=== PATIENT | female | born 1975 | race Caucasian/White ===

== ENCOUNTER 2018-08-19 17:24 | Inpatient (IN) | payer BC ==
[~2018-08-19] VITALS: Ht 142.2 cm; Wt 50.8 kg
[~2018-08-19 17:24] MED LIST: CYCL-331 PO
[2018-08-19] MEDS ORDERED: FAMOTIDINE 20 MG/2 ML VIAL IVP ONE (18:45)
[2018-08-19] MEDS ORDERED: ASPIRIN 325 MG TABLET PO ONE (18:45)
[2018-08-19] MEDS ORDERED: LIDO:MAALOX 1:1 20 ML SINGLE DOSE. PO ONE (18:45)
[2018-08-19] MEDS ORDERED: FAMOTIDINE 20 MG/2 ML VIAL ONE (18:46)
[2018-08-19 19:41] LABS: BASO # 0.1 x10^3/uL (0.0-0.2); BASO % 1 % (0-3); EOS # 0.1 x10^3/uL (0.0-0.7); EOS % 1 % (0-3); HEMATOCRIT 43.5 % (36.0-47.0); HEMOGLOBIN 14.5 g/dL (12.0-15.5); LYMPH # 2.2 x10^3/uL (1.0-4.8); LYMPH % 27 % (24-48); MEAN CORPUSCULAR HEMOGLOBIN 27 pg (25-35); MEAN CORPUSCULAR HGB CONC 33 g/dL (31-37); MEAN CORPUSCULAR VOLUME 82 fL (79-100); MONO # 0.5 x10^3/uL (0.0-1.1); MONO % 6 % (0-9); NEUT # 5.3 x10^3uL (1.8-7.7); NEUT % 64 % (31-73); PLATELET COUNT 280 x10^3/uL (140-400); RED BLOOD COUNT 5.32 x10^6/uL (3.50-5.40); RED CELL DISTRIBUTION WIDTH 13.9 % (11.5-14.5); WHITE BLOOD COUNT 8.2 x10^3/uL (4.0-11.0)
[2018-08-19 19:56] LABS: ALBUMIN/GLOBULIN RATIO 1.3 (1.0-1.7); CALCIUM 9.2 mg/dL (8.5-10.1); CREATININE 0.7 mg/dL (0.6-1.0); GFR 91.3; TOTAL BILIRUBIN 0.3 mg/dL (0.2-1.0)
--- NOTE | 2018-08-19 20:57 | RAD ---
PA and lateral chest radiograph. History: Chest pain. History of pulmonic stenosis. Comparison: June 15, 2012. Findings: Cardiomediastinal silhouette is within normal limits for size. Bilateral lung damon appear clear without evidence of infiltrate, effusion, or pneumothorax. There are thought to be 13 right ribs and 12 left ribs. Impression: 1. No acute cardiopulmonary process. Electronically signed by: Scott Espinal MD (08/19/2018 8:53 PM) [facility]
--- NOTE | 2018-08-19 21:19 | PHYS DOC ---
Past History Past Medical History: No Pertinent History Past Surgical History: , Tubal ligation, Other Alcohol Use: None Drug Use: None Adult General Chief Complaint Chief Complaint: CHEST PAIN HPI HPI 43-year-old female presents with report of "band like"pressure/pain to upper abdomen which started this afternoon and has not improved. Patient denies known trauma. Denies fever/chills. Patient does report pain is worse with deep inspiration. Patient reports she did have similar experience one week ago which self resolved. Denies nausea or vomiting. Denies rash. Patient denies any cardiac risk factors. Denies leg swelling or calf tenderness. Denies family history of CAD or PE/DVT. 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 Review of Systems Review of Systems Constitutional: Denies fever or chills; reports generalized malaise Eyes: Denies change in visual acuity, redness, or eye pain [] HENT: Denies nasal congestion or sore throat [] Respiratory: Denies cough or shortness of breath [] Cardiovascular: Reports lower chest pain bilaterally, denies palpitations [] GI: Ports upper abdominal pain; denies nausea, vomiting, or diarrhea [] : Denies dysuria or hematuria [] Musculoskeletal: Denies back pain or joint pain [] Integument: Denies rash or skin lesions [] Neurologic: Denies headache, focal weakness or sensory changes [] Complete systems were reviewed and found to be within normal limits, except as documented in this note. Current Medications Current Medications Current Medications Medications (Trade) Dose Ordered Sig/Jeremy Start Time Stop Time Status Last Admin Dose Admin Aspirin (Librado Aspirin) 325 mg 1X ONCE 08/19/18 18:45 08/19/18 18:46 DC 08/19/18 18:55 325 MG Famotidine (Pepcid Vial) 20 mg STK-MED ONCE 08/19/18 18:46 08/19/18 18:47 DC Multi-Ingredient Mouthwash/Gargle (Gi Cocktail) 20 ml 1X ONCE 08/19/18 18:45 08/19/18 18:46 DC 08/19/18 18:52 20 ML Allergies Allergies Allergies Coded Allergies Type Severity Reaction Last Updated Verified No Known Drug Allergies 06/06/16 No Physical Exam Physical Exam Constitutional: Well developed, well nourished, no acute distress, non-toxic appearance, short stature HENT: Normocephalic, atraumatic Eyes: Conjunctiva normal, no discharge. [] Neck: Normal range of motion, no tenderness, supple, no stridor. [] Cardiovascular: Heart rate regular rhythm, no murmur [] Lungs & Thorax: Bilateral breath sounds clear to auscultation [] Abdomen: Soft, mild epigastric and LUQ tenderness. [] Skin: Warm, dry, no erythema, no rash. [] Back: No tenderness, no CVA tenderness. [] Extremities: No tenderness, ROM intact, no edema. [] Neurologic: Alert and oriented X 3, normal motor function, normal sensory function, no focal deficits noted. [] Psychologic: Affect normal, judgement normal, mood normal. [] Current Patient Data Vital Signs Vital Signs Date Time Temp Pulse Resp B/P (MAP) Pulse Ox O2 Delivery O2 Flow Rate FiO2 08/19/18 18:00 98.1 81 20 100 Room Air Lab Results Laboratory Tests Test 08/19/18 18:46 08/19/18 19:16 White Blood Count 8.2 x10^3/uL (4.0-11.0) Red Blood Count 5.32 x10^6/uL (3.50-5.40) Hemoglobin 14.5 g/dL (12.0-15.5) Hematocrit 43.5 % (36.0-47.0) Mean Corpuscular Volume 82 fL (79-100) Mean Corpuscular Hemoglobin 27 pg (25-35) Mean Corpuscular Hemoglobin Concent 33 g/dL (31-37) Red Cell Distribution Width 13.9 % (11.5-14.5) Platelet Count 280 x10^3/uL (140-400) Neutrophils (%) (Auto) 64 % (31-73) Lymphocytes (%) (Auto) 27 % (24-48) Monocytes (%) (Auto) 6 % (0-9) Eosinophils (%) (Auto) 1 % (0-3) Basophils (%) (Auto) 1 % (0-3) Neutrophils # (Auto) 5.3 x10^3uL (1.8-7.7) Lymphocytes # (Auto) 2.2 x10^3/uL (1.0-4.8) Monocytes # (Auto) 0.5 x10^3/uL (0.0-1.1) Eosinophils # (Auto) 0.1 x10^3/uL (0.0-0.7) Basophils # (Auto) 0.1 x10^3/uL (0.0-0.2) D-Dimer (Sherine) 0.56 mg/L (0.00-0.50) H Prothrombin Time 11.4 SEC (9.4-11.4) Prothrombin Time INR 1.2 (0.9-1.1) H Sodium Level 143 mmol/L (136-145) Potassium Level 4.0 mmol/L (3.5-5.1) Chloride Level 104 mmol/L (98-107) Carbon Dioxide Level 25 mmol/L (21-32) Anion Gap 14 (6-14) Blood Urea Nitrogen 16 mg/dL (7-20) Creatinine 0.7 mg/dL (0.6-1.0) Estimated GFR (Cockcroft-Gault) 91.3 BUN/Creatinine Ratio 23 (6-20) H Glucose Level 113 mg/dL (70-99) H Calcium Level 9.2 mg/dL (8.5-10.1) Magnesium Level 2.0 mg/dL (1.8-2.4) Total Bilirubin 0.3 mg/dL (0.2-1.0) Aspartate Amino Transferase (AST) 17 U/L (15-37) Alanine Aminotransferase (ALT) 24 U/L (14-59) Alkaline Phosphatase 90 U/L (46-116) Creatine Kinase 80 U/L (26-192) Creatine Kinase MB (Mass) 0.8 ng/mL (0.0-3.6) Creatine Kinase MB Relative Index 1.0 % (0-4) Troponin I Quantitative < 0.017 ng/mL (0-0.055) Total Protein 7.0 g/dL (6.4-8.2) Albumin 4.0 g/dL (3.4-5.0) Albumin/Globulin Ratio 1.3 (1.0-1.7) Lipase 875 U/L (73-393) H EKG EKG @1741 NSR at 81bpm, baseline artifact, NO ST elevation Radiology/Procedures Radiology/Procedures PROCEDURE: CHEST PA & LATERAL PA and lateral chest radiograph. History: Chest pain. History of pulmonic stenosis. Comparison: June 15, 2012. Findings: Cardiomediastinal silhouette is within normal limits for size. Bilateral lung damon appear clear without evidence of infiltrate, effusion, or pneumothorax. There are thought to be 13 right ribs and 12 left ribs. Impression: 1. No acute cardiopulmonary process. Electronically signed by: Scott Sims MD (08/19/2018 8:53 PM) [facility] PROCEDURE: LUNG VENT/PERFUSION SCAN(VQ) Nuclear medicine ventilation/perfusion scan. History: Shortness of air. Elevated d-dimer. Comparison: Chest radiograph August 19, 2018. Technique: Ventilation portion was performed after inhalation of 20 mCi Xenon-133. Perfusion portion was performed after intravenous administration of 6 mCi Tc 99m MAA. Findings: Ventilation study demonstrates a symmetric ventilation. There is evidence of air trapping, suggesting obstructive lung disease. There is also evidence of escape of the xenon, suggesting a leak of the tubing versus incomplete seal around the mouth. Perfusion study is normal. Impression: 1. Normal perfusion scan. Negative for pulmonary embolism. 2. Air-trapping, suggesting obstructive lung disease. Electronically signed by: Scott Sims MD (08/20/2018 12:00 AM) [facility] DICTATED AND SIGNED BY: SCOTT SIMS MD DATE: 08/19/18 2000 Course & Med Decision Making Course & Med Decision Making Pertinent Labs and Imaging studies reviewed. (See chart for details) Patient presents with report of bandlike pressure to upper abdominal quadrants. Denies fever or chills. Low cardiac risk factors. EKG without acute process. Initial troponin WNL. LFT within normal limits. Lipase with significant elevation. Symptomatic treatment provided with IV Pepcid and GI cocktail. D- dimer elevated. VQ scan ordered and low probability for acute PE. Patient requiring admission for further evaluation and treatment. Discussed with Dr. Jacob (PCP) who is in agreement with admission. Requests for routine CT abd /pelvis with PO contrast only to be ordered for AM. Discussed findings and plan with patient and family, who acknowledge understanding and agreement. Dragon Disclaimer Dragon Disclaimer This electronic medical record was generated, in whole or in part, using a voice recognition dictation system. Departure Departure: Impression: Primary Impression: Acute pancreatitis Additional Impression: Elevated d-dimer Disposition: ADMITTED INPATIENT Admitting Physician: Matt Jacob Condition: STABLE Referrals: MATT JACOB MD (PCP) Problem Qualifiers Primary Impression: Acute pancreatitis Pancreatitis type: unspecified pancreatitis type Acute pancreatitis complication: unspecified Qualified Codes: K85.90 - Acute pancreatitis without necrosis or infection, unspecified SCOTT DEL TORO DO Aug 19, 2018 21:19
[2018-08-19] MEDS ORDERED: ONDANSETRON PF 4 MG/2 ML VIAL. IV PRN (21:30)
[2018-08-19] MEDS: IV NORMAL SALINE 1,000ML 1,000 ML IV SCH ×2 (21:37→22:58)
[2018-08-19 23:17] VITALS: BP 131/84
--- NOTE | 2018-08-20 00:03 | RAD ---
Nuclear medicine ventilation/perfusion scan. History: Shortness of air. Elevated d-dimer. Comparison: Chest radiograph August 19, 2018. Technique: Ventilation portion was performed after inhalation of 20 mCi Xenon-133. Perfusion portion was performed after intravenous administration of 6 mCi Tc 99m MAA. Findings: Ventilation study demonstrates a symmetric ventilation. There is evidence of air trapping, suggesting obstructive lung disease. There is also evidence of escape of the xenon, suggesting a leak of the tubing versus incomplete seal around the mouth. Perfusion study is normal. Impression: 1. Normal perfusion scan. Negative for pulmonary embolism. 2. Air-trapping, suggesting obstructive lung disease. Electronically signed by: Scott Espinal MD (08/20/2018 12:00 AM) [facility]
[2018-08-20 05:50] VITALS: BP 123/83
--- NOTE | 2018-08-20 06:58 | EKG ---
[address] [address] Test Date: 2018-08-19 Test Time: 17:41:29 Pat Name: CHINTAN BELL Department: Room: 120 A Gender: F Nail Kegger: : 1975 Requested By: LJ SAUNDERS Order Number: [id number] Reading MD: Melvin Swift MD Measurements Intervals [place] Rate: 81 P: -24 AK: 124 QRS: 115 QRSD: 68 T: 82 QT: 330 QTc: 384 Interpretive Statements PROBABLE SINUS RHYTHM NON-SPECIFIC ST/T CHANGES Electronically Signed On 08-21-2018 9:54:58 CDT by Melvin Swift MD
--- NOTE | 2018-08-20 09:52 | RAD ---
Examination: CT of the abdomen pelvis with oral contrast HISTORY: History of pancreatitis COMPARISON: None available Technique: Axial CT images of the abdomen pelvis were performed with oral contrast. Coronal and sagittal deformities are performed Exposure: One or more of the following individualized dose reduction techniques were utilized for this examination: 1. Automated exposure control 2. Adjustment of the mA and/or kV according to patient size 3. Use of iterative reconstruction technique FINDINGS: The bibasilar lungs are clear. No evidence of free air identified in the abdomen. The evaluation of the solid organs is limited due to lack of IV contrast. The visualized noncontrasted liver, spleen, adrenals grossly appears unremarkable. The gallbladder is mildly distended. The stomach is mildly distended. The visualized pancreas grossly appears unremarkable however evaluation of the pancreas is limited due to lack of IV contrast. No evidence of focal fat stranding identified about the pancreas. The small bowel is nondilated. Feces and gas noted in the colon. Urinary bladder is mildly distended. A small soft tissue nubbin is identified probably congenitally small left kidney. There is mild fat stranding identified about the right kidney and about the proximal right ureter. No evidence of intrarenal collecting system calculi or hydronephrosis. Caliber of the aorta grossly appears unremarkable. Mild degenerative changes identified in the lumbar spine. IMPRESSION: 1. Faint fat stranding identified about the right kidney. Pyelonephritis is a possibility. Correlate with lab values. 2. No obvious fat stranding identified about the pancreas. However evaluation is limited without IV contrast. Electronically signed by: Ankur Barrow MD (08/20/2018 9:49 AM) [id number]
[2018-08-20] MEDS: IV NORMAL SALINE 1,000ML 1,000 ML IV SCH ×2 (10:16→21:30)
[2018-08-20 10:39] VITALS: BP 117/77
[2018-08-20] MEDS: APIXABAN 2.5 MG TABLET PO SCH ×2 (11:01→20:47)
[2018-08-20 11:02] LABS: BACTERIA,URINE FEW /HPF (0-FEW); BILIRUBIN,URINE NEG (NEG); CLARITY,URINE HAZY; COLOR,URINE STRAW; GLUCOSE,URINE NEG (NEG); NITRITE,URINE NEG (NEG); RBC,URINE 0 /HPF (0-2); SQUAMOUS EPITHELIAL CELL,UR OCC /LPF; UROBILINOGEN,URINE 0.2 mg/dL (0.2 mg/dL)
--- NOTE | 2018-08-20 12:20 | HP ---
ADMIT DATE: 08/19/2018 HISTORY OF PRESENT ILLNESS: This is a 43-year-old female who has been having problems with pain in her epigastric area radiating around to her back. This happened last week and then last night, it became increasingly worse. The patient otherwise had some mild nausea, but no fever or chills. She denies any other problems with cardiac risk factors. The patient was admitted initially for chest pain, although later her lipase came back markedly elevated over 800 and also later on CT scan showed the possibility of pyelonephritis, waiting on the urine on that. In any case, urine does show 11-20 white blood cells, so we may put her on some IV antibiotics there. 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 She has had C-sections x 2, nausea, heartburn, and facial reconstruction. She has been treated in the past for depression and anxiety. ALLERGIES: No known allergies. FAMILY HISTORY: Father with hypertension. MEDICATIONS: The patient's home med actually is just 1 and is not known at this time. SOCIAL HISTORY: The patient denies smoking, alcohol, or drug use. REVIEW OF SYSTEMS: The patient denies any recent weight loss, weight gain, change in bowel habits except for this band-like sensation around her waist area. The patient notes no problems with urination. She denies chest pain or shortness of breath. Denies any melena, hematochezia, or hematemesis. She is neurologically intact. PHYSICAL EXAMINATION: GENERAL: This is a pleasant 43-year-old female with no apparent distress at the present time. The patient is alert and oriented x 3. present in the room. VITAL SIGNS: Blood pressure 122/73, respiratory rate 20, pulse 90, afebrile. RESPIRATORY: The patient's lungs are clear to auscultation. CARDIOVASCULAR: Regular sinus rhythm, S1, S2, without murmur, rub, thrill, or extra heart sound. ABDOMEN: Soft and nontender. No rebound or guarding. Positive bowel sounds. No hepatosplenomegaly was noted. There is some tenderness, but very mild in the epigastric area. EXTREMITIES: No clubbing, cyanosis, or edema. NEUROLOGIC: The patient was alert and oriented x 3. As noted, lipase was 875. We will continue to monitor the patient and put her on some IV antibiotic therapy. She did have numerous white blood cells. Await for culture sensitivities on that. However, the patient should be continued to be monitored carefully and make further evaluation on her as indicated. MATT JACOB MD DR: HEATHER/lux JOB#: [id number] / [id number]
[2018-08-20 14:29] VITALS: BP 126/81
[2018-08-20] MEDS ORDERED: METO50TA6 PO (15:44)
[2018-08-20] MEDS ORDERED: NITR0.4T22 SL (15:44)
[2018-08-20] MEDS ORDERED: CALC-157 PO (15:44)
[2018-08-20] MEDS ORDERED: MOME13HF IH (15:44)
[2018-08-20] MEDS ORDERED: INSU100I13 SQ (15:44)
[2018-08-20] MEDS ORDERED: DOCU100C28 PO (15:44)
[2018-08-20] MEDS ORDERED: ASPI-630 PO (15:44)
[2018-08-20] MEDS ORDERED: LISI40TA PO (15:44)
[2018-08-20] MEDS ORDERED: CARB15DR58 OT (15:44)
[2018-08-20] MEDS ORDERED: ISOS30TA4 PO (15:44)
[2018-08-20] MEDS ORDERED: FURO40TA4 PO (15:44)
[2018-08-20] MEDS ORDERED: ACET325T9 PO (15:44)
[2018-08-20] MEDS ORDERED: NEOM10DR32 EACH EAR (15:44)
[2018-08-20] MEDS ORDERED: MECL25TA3 PO (15:44)
[2018-08-20] MEDS ORDERED: ATORVASTATIN CA80 MG PO (15:44)
[2018-08-20] MEDS ORDERED: FLUT9.9S NS (15:44)
[2018-08-20] MEDS ORDERED: RANI150C PO (15:44)
[2018-08-20] MEDS ORDERED: INSU100C4 SQ (15:44)
[2018-08-20] MEDS: ACETAMINOPHEN 325 MG TABLET PO PRN (17:44)
[2018-08-20 18:46] VITALS: BP 131/81
[2018-08-20] MEDS: LACTOBACILLUS RHAMNOSUS GG 1 CAPSULE. PO SCH (20:46)
[2018-08-20 22:47] VITALS: BP_SYST 120; BP_SYST 127; BP_DIAS 69; BP_DIAS 81
[2018-08-21 05:39] VITALS: BP 111/71
[2018-08-21] MEDS: ACETAMINOPHEN 325 MG TABLET PO PRN (06:02)
[2018-08-21] MEDS: IV NORMAL SALINE 1,000ML 1,000 ML IV SCH (07:10)
[2018-08-21] MEDS ORDERED: ONDANSETRON PF 4 MG/2 ML VIAL. IV PRN (07:15)
[2018-08-21 08:28] LABS: BASO % 0 % (0-3); EOS % 0 % (0-3); HEMATOCRIT 38.2 % (36.0-47.0); HEMOGLOBIN 12.6 g/dL (12.0-15.5); LYMPH % 13 % (24-48); MEAN CORPUSCULAR HEMOGLOBIN 27 pg (25-35); MEAN CORPUSCULAR HGB CONC 33 g/dL (31-37); MEAN CORPUSCULAR VOLUME 83 fL (79-100); MONO # 0.3 x10^3/uL (0.0-1.1); MONO % 4 % (0-9); NEUT # 6.7 x10^3uL (1.8-7.7); NEUT % 83 % (31-73); PLATELET COUNT 198 x10^3/uL (140-400); RED CELL DISTRIBUTION WIDTH 13.7 % (11.5-14.5); WHITE BLOOD COUNT 8.1 x10^3/uL (4.0-11.0)
[2018-08-21 08:42] LABS: CALCIUM 8.4 mg/dL (8.5-10.1); CREATININE 0.8 mg/dL (0.6-1.0); GFR 78.3
[2018-08-21] MEDS: APIXABAN 2.5 MG TABLET PO SCH (09:00)
[2018-08-21] MEDS ORDERED: LEVO500T59 PO (09:04)
[2018-08-21] MEDS: LACTOBACILLUS RHAMNOSUS GG 1 CAPSULE. PO SCH (09:41)
--- NOTE | 2018-08-23 01:21 | DS ---
DATE OF DISCHARGE: 08/21/2018 HOSPITAL COURSE: A 43-year-old female came in with severe abdominal pain. The patient's CT scan showed possible pyelonephritis. She was treated with IV antibiotic therapy. She made excellent progress during the rest of her hospitalization. She also had an elevated lipase of 875. The patient made good progress overall and was discharged home. IMPRESSION: Pyelonephritis, acute pancreatitis, Angel Luis Manuel syndrome, history of brain aneurysm, pulmonary stenosis, aortic reconstruction, cardiac catheterization, history of pancreatitis. PLAN: The patient; otherwise, will be continued to be monitored carefully as an outpatient, should be on a regular diet, decreased activity. Make further evaluation as an outpatient. She will be referred on to GI for further evaluation and treatment. MATT JACOB MD DR: HEATHER/lux JOB#: [id number] / [id number]
== END 2018-08-21 10:10 | disposition home or self-care (01) | DRG 689 ==
LOC: ER 18:30 → 1 SOUTH 21:25
PROVIDERS: ADMIT Family Medicine; ATTEND Family Medicine
DX: N12 Tubulo-interstitial nephritis, not specified as acute or chronic (principal); K85.90 Acute pancreatitis without necrosis or infection, unspecified; R79.1 Abnormal coagulation profile; Z98.891 History of uterine scar from previous surgery; Z82.49 Family history of ischemic heart disease and other diseases of the circulatory system; Z98.51 Tubal ligation status; Q87.0 Congenital malformation syndromes predominantly affecting facial appearance; Z79.899 Other long term (current) drug therapy
CPT/HCPCS: 36415; 71046; 74176; 78582; 80048; 80053; 80061; 81001; 82150; 82553; 83690; 83735; 84484; 85025; 85379; 85610; 87086; 93005; 96374; 96375; A9540; A9558; J1956; J2405; J3010; S0028; 99285-25; J7030

== ENCOUNTER 2019-04-20 08:21 | Emergency (ER) | payer BC ==
[~2019-04-20] VITALS: Ht 142.2 cm; Wt 49.0 kg
[~2019-04-20 08:21] MED LIST changes: +ACET325T9 PO; +ASPI-630 PO; +ATORVASTATIN CA80 MG PO; +CALC-157 PO; +CARB15DR58 OT; +DOCU100C28 PO; +FLUT9.9S NS; +FURO40TA4 PO; +INSU100C4 SQ; +INSU100I13 SQ; +ISOS30TA4 PO; +LEVO500T59 PO; +LISI40TA PO; +MECL25TA3 PO; +METO50TA6 PO; +MOME13HF IH; +NEOM10DR32 EACH EAR; +NITR0.4T22 SL; +RANI150C PO
--- NOTE | 2019-04-20 08:54 | PHYS DOC ---
Past History Past Medical History: Other Additional Past Medical Histor: Angel Luis Manuel syndrome Past Surgical History: , Tubal ligation, Other Smoking: Non-smoker Alcohol Use: None Drug Use: None Adult General Chief Complaint Chief Complaint: MECHANICAL FALL HPI HPI Patient is a 43-year-old female presents complaining of right ankle and low back pain. Patient was standing on and unstable support when it gave way causing her to fall injuring the ankle and low back. There was no loss of consciousness. No head injury. Increased pain with movement and walking. This happened at approximately 07:30 this morning. No numbness or tingling. No weakness, numbness, or tingling. No home medicines have been taken. Pain is moderate to severe in intensity.[] Review of Systems Review of Systems Constitutional: Denies fever or chills [] Eyes: Denies change in visual acuity, redness, or eye pain [] HENT: Denies nasal congestion or sore throat [] Respiratory: Denies cough or shortness of breath [] Cardiovascular: No chest pain or palpitations[] GI: Denies abdominal pain, nausea, vomiting, bloody stools or diarrhea [] : Denies dysuria or hematuria [] Musculoskeletal: See history of present illness[] Integument: Denies rash or skin lesions [] Neurologic: Denies headache, focal weakness or sensory changes [] Endocrine: Denies polyuria or polydipsia [] All other systems were reviewed and found to be within normal limits, except as documented in this note. Current Medications Current Medications Current Medications Medications (Trade) Dose Ordered Sig/Jeremy Start Time Stop Time Status Last Admin Dose Admin Ibuprofen (Motrin) 600 mg 1X ONCE 04/20/19 09:00 04/20/19 09:01 UNV Allergies Allergies Allergies Coded Allergies Type Severity Reaction Last Updated Verified No Known Drug Allergies 06/06/16 No Physical Exam Physical Exam Constitutional: Well developed, well nourished, mild to moderate discomfort, non-toxic appearance. [] HENT: Normocephalic, atraumatic, bilateral external ears normal, oropharynx moist, no oral exudates, nose normal. [] Eyes: PERRLA, EOMI, conjunctiva normal, no discharge. [] Neck: Normal range of motion, no tenderness, supple, no stridor. [] Cardiovascular:Heart rate regular rhythm, no murmur [] Lungs & Thorax: Bilateral breath sounds clear to auscultation, no crepitus, no flail segments, no tenderness to palpation [] Abdomen: Bowel sounds normal, soft, no tenderness, no masses, no pulsatile masses. [] Skin: Warm, dry, no erythema, no rash. [] Back: Tenderness to palpation to the right of midline in the lumbar paraspinal region. Decreased active range of motion secondary to pain. Spasm is present. No midline tenderness, step-off, or crepitus. Patient is distally neurovascularly intact., no CVA tenderness. [] Extremities: Right ankle has tenderness over the lateral malleolus and the anterior patellar fibular ligament, no significant base of the fifth metatarsal tenderness. There is no crepitus, decreased active range of motion secondary to pain. No laxity appreciated. She is distally neurovascularly intact. A joint above and a joined below were evaluated and were normal. The other 3 extremities show: No tenderness, no cyanosis, no clubbing, ROM inta ct, no edema. [] Neurologic: Alert and oriented X 3, normal motor function, normal sensory function, no focal deficits noted. [] Psychologic: Affect normal, judgement normal, mood normal. [] Current Patient Data Vital Signs Vital Signs Date Time Temp Pulse Resp B/P (MAP) Pulse Ox O2 Delivery O2 Flow Rate FiO2 04/20/19 08:38 98.2 81 20 100 Room Air EKG EKG [] Radiology/Procedures Radiology/Procedures Three-view right ankle study Clinical indications: Fall with right ankle pain. FINDINGS: No acute fracture or dislocation or lytic process is seen. The mortise ankle joint is intact. IMPRESSION: No acute fracture. LUMBAR SPINE 2-3V History: Fall, low back pain Comparison: None. Findings: 3 views of the lumbar spine are submitted. Lumbar vertebral body stature and AP alignment overall maintained. There is facet degenerative change of the inferior lumbar spine. No acute osseous abnormality is identified by radiographs. Small calcifications in the pelvis bilaterally are more likely due to phleboliths. Impression: 1. No acute osseous abnormality is identified by radiographs. [] Course & Med Decision Making Course & Med Decision Making Pertinent Labs and Imaging studies reviewed. (See chart for details) ED course: Patient arrived, was placed in bed, and tolerated exam well. She was transported to and from radiology with any complications. After the return of lab and imaging findings, these were discussed with the patient and family who voiced understanding. Patient was put in a ankle splint. She was distally neurovascularly intact after splint application. She was discharged in improved condition with all questions answered. Medical decision making: There is no evidence of a fracture, dislocation or subluxation. No evidence of neurologic or vascular compromise. No evidence of acute kidney injury. No evidence of acute intra-abdominal traumatic pathology.[] Dragon Disclaimer Dragon Disclaimer This electronic medical record was generated, in whole or in part, using a voice recognition dictation system. Departure Departure: Impression: Primary Impression: Right ankle sprain Additional Impression: Lumbar spine strain Disposition: HOME, SELF-CARE Condition: IMPROVED Referrals: MATT JACOB MD (PCP) Patient Instructions: Ankle Sprain, Acute, with Phase I Rehab-SportsMed, Low Back Strain with Rehab-SportsMed Additional Instructions: Follow-up with your regular doctor in 2 days. Weight-bear as tolerated. Return to the ER if worsening pain, numbness, or any other concerns. Scripts Tramadol Hcl (TRAMADOL HCL) 50 Mg Tablet 50 MG PO PRN Q6HRS PRN for PAIN, #20 TAB Prov: JACOB DUGGAN DO 04/20/19 Meloxicam (MELOXICAM) 7.5 Mg Tablet 7.5 MG PO DAILY for PAIN, #20 TAB Prov: JACOB DUGGAN DO 04/20/19 Problem Qualifiers Primary Impression: Right ankle sprain Encounter type: initial encounter Involved ligament of ankle: anterior talofibular ligament Qualified Codes: S93.491A - Sprain of other ligament of right ankle, initial encounter Additional Impression: Lumbar spine strain Encounter type: initial encounter Qualified Codes: S39.012A - Strain of muscle, fascia and tendon of lower back, initial encounter JACOB DUGGAN DO Apr 20, 2019 08:54
[2019-04-20] MEDS ORDERED: IBUPROFEN 600 MG TABLET. PO ONE (09:15)
--- NOTE | 2019-04-20 09:18 | RAD ---
Three-view right ankle study Clinical indications: Fall with right ankle pain. FINDINGS: No acute fracture or dislocation or lytic process is seen. The mortise ankle joint is intact. IMPRESSION: No acute fracture. Electronically signed by: Gavin Lindsey MD (04/20/2019 9:16 AM) [facility]
--- NOTE | 2019-04-20 09:19 | RAD ---
LUMBAR SPINE 2-3V History: Fall, low back pain Comparison: None. Findings: 3 views of the lumbar spine are submitted. Lumbar vertebral body stature and AP alignment overall maintained. There is facet degenerative change of the inferior lumbar spine. No acute osseous abnormality is identified by radiographs. Small calcifications in the pelvis bilaterally are more likely due to phleboliths. Impression: 1. No acute osseous abnormality is identified by radiographs. Electronically signed by: Az Ryan MD (04/20/2019 9:16 AM) [id number]
[2019-04-20 09:24] LABS: BACTERIA,URINE FEW /HPF (0-FEW); BILIRUBIN,URINE NEG (NEG); CLARITY,URINE HAZY; COLOR,URINE AMBER; GLUCOSE,URINE NEG (NEG); NITRITE,URINE NEG (NEG); RBC,URINE RARE /HPF (0-2); SQUAMOUS EPITHELIAL CELL,UR MOD /LPF; UROBILINOGEN,URINE 0.2 mg/dL (0.2 mg/dL)
[2019-04-20 09:30] VITALS: BP 134/61
[2019-04-20] MEDS ORDERED: TRAM50TA PO (09:37)
[2019-04-20] MEDS ORDERED: MELO7.5T29 PO (09:37)
== END 2019-04-20 09:50 | disposition home or self-care (01) ==
LOC: ER 08:21
DX: S93.491A Sprain of other ligament of right ankle, initial encounter (principal); S39.012A Strain of muscle, fascia and tendon of lower back, initial encounter; Q87.0 Congenital malformation syndromes predominantly affecting facial appearance; Z98.890 Other specified postprocedural states; Z98.51 Tubal ligation status; W18.39XA Other fall on same level, initial encounter; Y93.89 Activity, other specified; Y92.89 Other specified places as the place of occurrence of the external cause; Y99.8 Other external cause status
CPT/HCPCS: 29515; 72100; 73610; 81001; 81025; 99285

== ENCOUNTER 2019-04-22 15:08 | Emergency (ER) | payer BC ==
[~2019-04-22] VITALS: Ht 142.2 cm; Wt 49.0 kg
[~2019-04-22 15:08] MED LIST changes: +MELO7.5T29 PO; +TRAM50TA PO
--- NOTE | 2019-04-22 15:51 | PHYS DOC ---
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 Patient had recently injured her lower back as well as her right foot and ankle after a fall. Patient has been on crutches since that time after having been seen for this complaint with x-rays having been done. Patient indicates that she did have x-rays of her lower back as well as her foot and ankle and states that there were no acute findings. She states that today she went to close a door on the crutches and twisted her back and now she feels like she has severe burning pain in her right lower back. Patient states that she is concerned that she may have one something in there. She rates pain at a 10 out of 10. She denies any radiation of the pain.[] Review of Systems Review of Systems Constitutional: Denies fever or chills [] Respiratory: Denies cough or shortness of breath [] Cardiovascular: No additional information not addressed in HPI [] : Denies dysuria or hematuria [] Musculoskeletal: Complains of right lower back pain [] Neurologic: Denies focal weakness or sensory changes [] Allergies Allergies Allergies Coded Allergies Type Severity Reaction Last Updated Verified No Known Drug Allergies 06/06/16 No Physical Exam Physical Exam Constitutional: Well developed, well nourished, no acute distress, non-toxic appearance. [] Cardiovascular:Heart rate regular rhythm, no murmur [] Lungs & Thorax: Bilateral breath sounds clear to auscultation [] Back: There is tenderness to palpation in the right lumbar paraspinal musculature. There is palpable spasm noted in the lower thoracic and upper lumbar region. [] Neurologic: Alert and oriented X 3, normal motor function, normal sensory function, no focal deficits noted. [] Current Patient Data Vital Signs Vital Signs Date Time Temp Pulse Resp B/P (MAP) Pulse Ox O2 Delivery O2 Flow Rate FiO2 04/22/19 15:15 98.1 98 18 98 Room Air EKG EKG [] Radiology/Procedures Radiology/Procedures [] Impressions: PROCEDURE: CT LUMBAR SPINE WO CONTRAST CT LUMBAR SPINE WO CONTRAST Indication: Patient fell Saturday. Continued low back and right hip pain. Exposure: One or more of the following individualized dose reduction techniques were utilized for this examination: 1. Automated exposure control 2. Adjustment of the mA and/or kV according to patient size 3. Use of iterative reconstruction technique. Technique: Standard imaging without intravenous contrast. Findings: Transitional anatomy at the lumbosacral junction. For the purposes of counting this transitional vertebrae is considered a partially lumbarized S1 segment. There is mild endplate irregularity at multiple levels of the visualized spine compatible most likely with developmental variant. There is a tiny cortical defect at the lateral aspect of the right L1 transverse process compatible with a small nondisplaced fracture. Vertebral body height is maintained without other fracture. Alignment intact without subluxation. No significant paraspinal soft tissue swelling or hematoma. No high-grade central osseous spinal stenosis. The left kidney is not visualized. Ring density in the left pelvis may represent prior contrast media within a diverticula or bowel content. The sacroiliac joints are intact. IMPRESSION: 1. Findings compatible with a very small nondisplaced fracture of the lateral aspect of the right L1 transverse process. 2. No other acute findings. Electronically signed by: Scott Go MD (04/22/2019 4:07 PM) [facility] Course & Med Decision Making Course & Med Decision Making Pertinent Labs and Imaging studies reviewed. (See chart for details) [] Dragon Disclaimer Dragon Disclaimer This electronic medical record was generated, in whole or in part, using a voice recognition dictation system. Departure Departure: Impression: Primary Impression: Fracture of transverse process of lumbar vertebra Disposition: HOME, SELF-CARE Condition: STABLE Referrals: MATT JACOB MD (PCP) Patient Instructions: Lumbar Fracture Scripts Orphenadrine Citrate (ORPHENADRINE CITRATE) 100 Mg Tablet.er 1 TAB PO BID PRN for MUSCLE SPASMS, #20 TAB Prov: FARZANA MORALES Jr. DO 04/22/19 Hydrocodone Bit/Acetaminophen (HYDROCODONE-APAP 7.5-325 ) 1 Each Tablet 1 TAB PO PRN Q6HRS PRN for PAIN, #15 TAB 0 Refills Prov: FARZANA MORALES Jr. DO 04/22/19 Problem Qualifiers Primary Impression: Fracture of transverse process of lumbar vertebra Encounter type: initial encounter Fracture type: closed Qualified Codes: S32.009A - Unspecified fracture of unspecified lumbar vertebra, initial encounter for closed fracture FARZANA MORALES Jr. DO Apr 22, 2019 15:51
--- NOTE | 2019-04-22 16:10 | RAD ---
CT LUMBAR SPINE WO CONTRAST Indication: Patient fell Saturday. Continued low back and right hip pain. Exposure: One or more of the following individualized dose reduction techniques were utilized for this examination: 1. Automated exposure control 2. Adjustment of the mA and/or kV according to patient size 3. Use of iterative reconstruction technique. Technique: Standard imaging without intravenous contrast. Findings: Transitional anatomy at the lumbosacral junction. For the purposes of counting this transitional vertebrae is considered a partially lumbarized S1 segment. There is mild endplate irregularity at multiple levels of the visualized spine compatible most likely with developmental variant. There is a tiny cortical defect at the lateral aspect of the right L1 transverse process compatible with a small nondisplaced fracture. Vertebral body height is maintained without other fracture. Alignment intact without subluxation. No significant paraspinal soft tissue swelling or hematoma. No high-grade central osseous spinal stenosis. The left kidney is not visualized. Ring density in the left pelvis may represent prior contrast media within a diverticula or bowel content. The sacroiliac joints are intact. IMPRESSION: 1. Findings compatible with a very small nondisplaced fracture of the lateral aspect of the right L1 transverse process. 2. No other acute findings. Electronically signed by: Scott Go MD (04/22/2019 4:07 PM) [facility]
[2019-04-22] MEDS ORDERED: HYDR-2765 PO (16:20)
[2019-04-22] MEDS ORDERED: ORPH-16 PO (16:20)
[2019-04-22 16:41] VITALS: BP 165/81
== END 2019-04-22 16:38 | disposition home or self-care (01) ==
LOC: ER 15:08
DX: S32.018A Other fracture of first lumbar vertebra, initial encounter for closed fracture (principal); X50.1XXA Overexertion from prolonged static or awkward postures, initial encounter; Y93.89 Activity, other specified; Y92.89 Other specified places as the place of occurrence of the external cause; Y99.8 Other external cause status
CPT/HCPCS: 72131; 99284